=== PATIENT | male | born 1940 | race Caucasian/White ===

== ENCOUNTER 2023-02-13 10:20 | Observation (INO) ==
[2023-02-13 12:27] LABS: ABS Lymphocytes 0.7 10^3/uL (1.0-4.8); ABS Monocytes 0.6 10^3/uL (0.0-1.1); ABS Neutrophils 8.3 10^3/uL (1.5-7.6); Eosinophil % 0.2 %; Hematocrit 45.9 % (38-53); Hemoglobin 15.5 g/dL (13.2-16.3); Lymphocyte % 7.5 %; Mean Corpuscular Hemoglobin 29.1 pg (27-33); Mean Corpuscular Hgb Conc 33.8 g/dL (31-36); Mean Corpuscular Volume 86.1 fL (80-97); Mean Platelet Volume 9.2 fL (7.5-11.2); Platelet Count 156 10^3/uL (150-450); Red Blood Count 5.34 10^6/uL (4.06-5.63); White Blood Count 9.6 10^3/uL (3.6-10.2)
[2023-02-13 12:33] LABS: INR 0.92 (0.83-1.13)
[2023-02-13 12:46] LABS: Albumin 4.1 g/dL (3.2-5.2); Albumin/Globulin Ratio 1.6 (1-3); C Reactive Protein 4.66 mg/L (<8.01); Calcium 8.9 mg/dL (8.6-10.3); Creatinine, Serum 1.01 mg/dL (0.67-1.17); Globulin 2.6 g/dL (2-4); Potassium 4.2 mmol/L (3.5-5.0); Total Bilirubin 0.6 mg/dL (0.2-1.0); Total Protein 6.7 g/dL (6.4-8.9); eGFR CKD-EPI 72.9 (>60)
[2023-02-13] MEDS ORDERED: Iohexol 350 (CONTRAST) 500 ML MDV IV ONE (12:56)
[2023-02-13] MEDS ORDERED: Lactated Ringers 1000 ml BAG 1,000 ML IV ONE (13:25)
[2023-02-13] MEDS ORDERED: HYDROmorphone 0.5 MG/0.5 ML SYRINGE IV SLOW PU PRN (15:09)
[2023-02-13] MEDS ORDERED: Acetaminophen IV 1 GM/100ML 1,000 MG/100 ML BAG IV PRN (15:10)
[2023-02-13] MEDS ORDERED: Ondansetron 4 mg VIAL 2 MG/ML 2 ml VIAL IV PRN (15:12)
[2023-02-13] MEDS ORDERED: Senna TAB 8.6 mg TAB PO PRN (15:33)
[2023-02-13] MEDS ORDERED: Labetalol IV 5 MG/ML 20 ml VIAL IV PUSH PRN (15:34)
[2023-02-13] MEDS: Lactated Ringers 1000 ml BAG 1,000 ML IV SCH (17:12)
[2023-02-13 17:43] LABS: HDL Cholesterol 75.8 mg/dL
[2023-02-13] MEDS ORDERED: Enoxaparin 40 MG/0.4 ML SYR SUBCUT SCH (18:00)
[2023-02-13] MEDS: Polyethylene Glycol 3350 17 GM PACKET PO SCH (19:53)
[2023-02-13 20:34] LABS: Urine Appearance Clear; Urine Bilirubin Negative (Negative); Urine Blood Negative (Negative); Urine Color Straw; Urine Glucose 1+(50 mg/dL) (Negative); Urine Ketones Negative (Negative); Urine Nitrite Negative (Negative); Urine Protein Negative (Negative); Urine Specific Gravity 1.018 (1.002-1.030); Urine Urobilinogen Negative (Negative)
[2023-02-14] MEDS: Lactated Ringers 1000 ml BAG 1,000 ML IV SCH ×2 (00:03→06:17)
[2023-02-14 05:38] LABS: ABS Lymphocytes 1.1 10^3/uL (1.0-4.8); ABS Monocytes 0.8 10^3/uL (0.0-1.1); ABS Neutrophils 8.8 10^3/uL (1.5-7.6); Eosinophil % 0.1 %; Hematocrit 42.9 % (38-53); Hemoglobin 14.6 g/dL (13.2-16.3); Lymphocyte % 9.9 %; Mean Corpuscular Hemoglobin 29.3 pg (27-33); Mean Corpuscular Volume 86.2 fL (80-97); Mean Platelet Volume 9.3 fL (7.5-11.2); Platelet Count 147 10^3/uL (150-450); Red Blood Count 4.98 10^6/uL (4.06-5.63); Red Cell Distribution Width 14.1 % (12-17); White Blood Count 10.8 10^3/uL (3.6-10.2)
[2023-02-14 06:01] LABS: Albumin 3.6 g/dL (3.2-5.2); Albumin/Globulin Ratio 1.4 (1-3); Calcium 8.5 mg/dL (8.6-10.3); Creatinine, Serum 0.88 mg/dL (0.67-1.17); Globulin 2.5 g/dL (2-4); Magnesium 1.9 mg/dL (1.9-2.7); Potassium 4.1 mmol/L (3.5-5.0); Total Bilirubin 0.9 mg/dL (0.2-1.0); Total Protein 6.1 g/dL (6.4-8.9); eGFR CKD-EPI 84.3 (>60)
[2023-02-14 06:49] LABS: Folate 19.89 ng/mL (5.90-24.80)
[2023-02-14] MEDS ORDERED: Magnesium Sulfate 2 gm BAG 2 GM/50 ML BAG IVPB ONE (07:33)
[2023-02-14] MEDS: Polyethylene Glycol 3350 17 GM PACKET PO SCH (09:00)
[2023-02-14 13:48] VITALS: BP 118/67
== END 2023-02-14 15:20 | disposition home or self-care (01) ==
LOC: ED 10:20 → INTOOBSV 14:47 → EDHOLD 14:47 → MED 16:28
PROVIDERS: ADMIT Internal Medicine; ATTEND Internal Medicine